=== PATIENT | female | born 1960 | race Caucasian/White ===

== ENCOUNTER → 2016-11-18 | Outpatient (CLI) | payer MEDICARE, MEDICAID ==
[~2016-11-18] MED LIST: CORTISPORIN CR7.5 GM; DELTASONE DPS5 MG PO; ECOTRIN81 MG PO; KEFLEX-DPS250 MG PO; LANTUS100 UNITS/ SQ; LIPITOR80 MG PO; MAG-OX400 MG PO; MYFORTIC180 MG PO; NITROSTAT0.4 MG SL; NOVOLOG100 UNIT/2 SQ; POLYETHYLENE GL17 GM PO; PROGRAF5 MG PO; PROTONIX40 MG PO; SURFAK DPS240 MG PO; THERAPEUTIC MUL1 TA1 PO; TOPROL XL DPS25 MG PO; TYLENOL DPS325 MG PO; ZOLOFT DPS50 MG PO
== END | disposition home or self-care (01) ==
LOC: RAD.S 11-16 14:00
DX: J44.9 Chronic obstructive pulmonary disease, unspecified (principal); R06.00 Dyspnea, unspecified; G47.10 Hypersomnia, unspecified; E66.09 Other obesity due to excess calories

== ENCOUNTER 2016-12-23 15:30 | Emergency (ER) | payer MEDICARE, MEDICAID ==
--- NOTE | 2017-01-02 18:03 | ER ---
ADMIT: 12/23/2016 RM/LOC: ER [facility] MR#: [id number] [address] [id number] JUAN DIEGO DUBON [address] [place] [address] Emergency Room Report SEX: F AGE: 56 : 1960 DATE: 12/23/2016 ADDENDUM: CHIEF COMPLAINT: Left foot pain. HISTORY OF PRESENT ILLNESS: This is a 56-year-old female, who denies any injury to her foot. She noticed within the last couple of days that her foot was a little bit purple and swollen and more pain to it. 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 PHYSICAL EXAMINATION: She does have some ecchymosis to the distal toes on the medial aspect of the foot. It is very tender to palpation. She does have a little bit of decreased cap refill in the toes. COURSE IN THE EMERGENCY ROOM: An x-ray was done along with a venous and arterial ultrasound. X-ray was read as negative, over-read by Dr. Navarrete and the radiologist. Ultrasound venous did not show any DVT. Ultrasound arterial did show decreased flow below the popliteal to three vessels. I did speak with Dr. Jessica regarding this patient. He said to have the patient follow up still with Dr. Arredondo this week. Continue the aspirin. Did not need any added therapy at this time. CLINICAL IMPRESSION: 1. Peripheral vascular disease. 2. Contusion to left foot. ANALILIA Bray / Orlando Navarrete MD / romelia JOB #: [id number] CC: Orlando Navarrete MD, Attending Physician Carlton Arredondo MD, Family Physician
== END 2016-12-23 18:25 | disposition home or self-care (01) ==
LOC: ER 15:30
DX: S90.32XA Contusion of left foot, initial encounter (principal); I73.9 Peripheral vascular disease, unspecified; X58.XXXA Exposure to other specified factors, initial encounter

== ENCOUNTER 2016-12-30 16:21 | Emergency (ER) | payer MEDICARE, MEDICAID ==
--- NOTE | 2017-01-17 15:51 | ER ---
ADMIT: 12/30/2016 RM/LOC: ER [facility] MR#: [id number] [place], [place] [address] JUAN DIEGO DUBON [address] [place] [address] Emergency Room Report SEX: F AGE: 56 : 1960 DATE: 12/30/2016 HISTORY OF PRESENT ILLNESS: The patient is a 56-year-old female with multiple problems. 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 She has had diabetes issues and she is here because her left second and third toes are kind of ecchymotic and she has a kind of bruise on top of the foot that she says has been treated with antibiotics as if she had had an infection. REVIEW OF SYSTEMS: Otherwise negative. She has diabetes type 2, on insulin; fistula; and CABG. She is on cephalexin and Kirk for her foot. She was able to walk in the ER even though she was limping. PHYSICAL EXAMINATION: VITAL SIGNS: Blood pressure 153/62, heart rate 77, respirations 18, temp 99.1, and O2 sats 91%. GENERAL: Mildly anxious. Then, there is swelling and pedal edema of the left foot with some ecchymosis. Otherwise, the physical examination is normal. IMAGING: X-ray was done, no infection in the bone. Chest x-ray negative. CLINICAL IMPRESSION: Left foot pain and cellulitis. I contacted Dr. Arredondo. He will be seeing her tomorrow. LABORATORY DATA: White count 6.1. Her glucose is 425. Lactic acid is normal. The sepsis protocol was started because she already has been treated with antibiotics and was diagnosed with cellulitis, but otherwise lactic acid is normal and procalcitonin also is normal, is less than 0.05. She is advised to do not miss the appointment tomorrow see Dr. Arredondo. ANALILIA Juarez / Andres Denson MD / modl JOB #: [id number] CC: Andres Denson MD, Attending Physician Carlton Arredondo MD, Family Physician
== END 2016-12-30 20:55 | disposition home or self-care (01) ==
LOC: ER 16:21
DX: L03.116 Cellulitis of left lower limb (principal); E11.9 Type 2 diabetes mellitus without complications; I73.9 Peripheral vascular disease, unspecified; Z79.4 Long term (current) use of insulin

== ENCOUNTER → 2017-01-06 | Outpatient (CLI) | payer MEDICARE, MEDICAID | END | disposition home or self-care (01) | LOC: RAD.S 13:00 | DX: N39.0 Urinary tract infection, site not specified (principal); R16.0 Hepatomegaly, not elsewhere classified; I51.7 Cardiomegaly; K46.9 Unspecified abdominal hernia without obstruction or gangrene ==